=== PATIENT | female | born 1970 | race Two or more races ===

== ENCOUNTER 2022-10-22 17:59 | Emergency (ER) | payer MEDICAID ==
[2022-10-22 18:30] LABS: BASOPHILS % (AUTO) 0.4 %; EOSINOPHILS # (AUTO) 0.1 10^3/uL (0.0-0.7); EOSINOPHILS % (AUTO) 0.8 %; HCT - HEMATOCRIT 35.5 % (37.0-47.0); HGB - HEMOGLOBIN 11.3 g/dL (12.0-16.0); LYMPHOCYTES # (AUTO) 1.7 10^3/uL (1.5-3.5); LYMPHOCYTES % (AUTO) 23.7 %; MEAN CORPUSCULAR HEMOGLOBIN 26.1 pg (27.0-31.0); MEAN CORPUSCULAR HGB CONC 31.8 g/dL (32.0-36.0); MEAN PLATELET VOLUME 10.3 fL (7.9-10.8); MONOCYTES # (AUTO) 0.5 10^3/uL (0.0-1.0); MONOCYTES % (AUTO) 6.2 %; NEUTROPHILS % (AUTO) 68.8 %; PLT - PLATELET COUNT 305 10^3/uL (130-450); RED BLOOD COUNT 4.33 10^6/uL (4.20-5.40); RED CELL DISTRIBUTION WIDTH 13.5 % (12.0-15.0); WHITE BLOOD COUNT 7.3 x10^3/uL (4.8-10.8)
[2022-10-22 18:43] LABS: BILIRUBIN,TOTAL 0.4 mg/dL (0.2-1.0); CALCIUM 9.1 mg/dL (8.5-10.3); CREATININE 0.8 mg/dL (0.4-1.0); POTASSIUM 3.5 mmol/L (3.5-5.0)
--- NOTE | 2022-10-22 19:03 | ED Physician Documentation ---
History of Present Illness - Stated complaint Stated Complaint: FEMALE - Chief complaint Chief Complaint: Abd Pain - Additonal information Additional information: 52-year-old female presents to the emergency department for evaluation of v aginal bleeding. Symptoms began 3 weeks ago. She reports that she saturating up to 10 pads a day. Often waking up having to change the sheets at night. Patient does have a history of an IUD in place for 22 years. She stopped being unable to feel the strings in 2014 and went to her PCP office to have that removed. They were able to confirm that the IUD was still in place but could not remove it in its office procedure therefore they recommended additional scanning and patient was lost to follow-up. Patient reports that she typically has an episode of vaginal bleeding once a month but never this heavy or for this long. No syncope. She does have some lower abdominal cramping. She takes no prescribed medications with the exception of a migraine medication. Not anticoagulated. G3, Review of Systems Constitutional: reports: Reviewed and negative Throat: reports: Reviewed and negative Cardiac: reports: Reviewed and negative Respiratory: reports: Reviewed and negative GI: reports: Abdominal Pain : reports: Vaginal bleeding Skin: reports: Reviewed and negative Musculoskeletal: reports: Reviewed and negative PD PAST MEDICAL HISTORY - Past Medical History Past Medical History: Yes Cardiovascular: Hypertension Respiratory: None Neuro: None Endocrine/Autoimmune: None GI: None ETL TESTER: None : None HEENT: None Psych: None Musculoskeletal: None Derm: None - Past Surgical History Past Surgical History: Yes Ortho: Carpal Tunnel surgery HEENT: Cataracts - Present Medications Home Medications: Ambulatory Orders Medication Instructions Recorded Confirmed No Known Home Medications 10/22/22 10/22/22 - Allergies Allergies/Adverse Reactions: Allergies Allergy/AdvReac Type Severity Reaction Status Date / Time No Known Drug Allergies Allergy Verified 10/22/22 18:14 - Social History Does the pt smoke?: No Smoking Status: Never smoker Does the pt drink ETOH?: No Does the pt have substance abuse?: No - Immunizations Immunizations are current?: Yes PD ED PE NORMAL - General General: Alert and oriented X 3, No acute distress, Well developed/nourished - HEENT HEENT: Atraumatic, Moist mucous membranes - Neck Neck: Supple, no meningeal sign, No adenopathy - Cardiac Cardiac: RRR, No murmur - Respiratory Respiratory: No respiratory distress, Clear bilaterally - Abdomen Abdomen: Normal bowel sounds, Soft, Non tender, Non distended - Back Back: No CVA TTP, No spinal TTP - Derm Derm: Normal color - Extremities Extremities: No deformity - Neuro Neuro: Alert and oriented X 3, insurance service representative 2-12 intact Eye Opening: Spontaneous Motor: Obeys Commands Verbal: Oriented GCS Score: 15 Results - Vitals Vitals: Vital Signs - 24 hr 10/22/22 10/22/22 10/22/22 18:11 18:23 18:30 Temperature 36.7 C Heart Rate 88 85 Respiratory 16 16 Rate Blood Pressure 145/94 H 151/89 H O2 Saturation 99 100 10/22/22 10/22/22 10/22/22 19:16 20:15 20:24 Temperature Heart Rate 80 80 Respiratory 16 17 Rate Blood Pressure 142/81 H O2 Saturation 99 10/22/22 20:31 Temperature Heart Rate 84 Respiratory 17 Rate Blood Pressure O2 Saturation 97 Oxygen O2 Source Room air - Labs Labs: Laboratory Tests 10/22/22 10/22/22 18:25 18:25 WBC 7.3 RBC 4.33 Hgb 11.3 L Hct 35.5 L MCV 82.0 MCH 26.1 L MCHC 31.8 L RDW 13.5 Plt Count 305 MPV 10.3 Neut # (Auto) 5.0 Lymph # (Auto) 1.7 [place] # (Auto) 0.5 Eos # (Auto) 0.1 Baso # (Auto) 0.0 Absolute Nucleated RBC 0.00 Nucleated RBC % 0.0 Sodium 137 Potassium 3.5 Chloride 102 Carbon Dioxide 25 Anion Gap 10.0 BUN 10 Creatinine 0.8 Estimated GFR (MDRD) 75 L Glucose 103 H Calcium 9.1 Total Bilirubin 0.4 AST 18 ALT 18 Alkaline Phosphatase 75 Total Protein 8.0 Albumin 4.0 Globulin 4.0 Albumin/Globulin Ratio 1.0 Lipase 61 H - Rads (name of study) abd xr Relevant Findings:: Final report received (IUD is noted within the pelvic region) pelvic US Relevant Findings:: Other (Per technician trainee: Fundal fibroid measuring about 8 cm seen. IUD appears to be in endometrium.) PD Medical Decision Making - ED course Complexity details: reviewed results, re-evaluated patient, considered differential, d/w patient ED course: 52-year-old female presents emergency department for evaluation of 3 weeks of vaginal bleeding. Reports she has had an IUD in place for about 22 years. She attempted to have it removed in 2014 but no strings were present and she got lost to follow-up. Reports that she is saturating 10 menstrual pads a day. She has had no syncope, chest pain or shortness of air. Here in the emergency department her vital signs show no hypotension or tachycardia. I did obtain a CBC and electrolytes. The CBC shows a mild anemia with a hemoglobin of 11.3. Well above the transfusion threshold. No worrisome electrolyte abnormalities. Subsequently I did get a flatplate KUB x-ray which per my interpretation shows an IUD though higher in the pelvis than 1 would expect. Subsequently a pelvic ultrasound was completed. And per the orthopedic radiologic technologist she communicates to me that the patient has an 8 cm fibroid. The IUD appears to be within the endometrium. Given this finding I suspect that the fibroid is the cause of the heavy vaginal bleeding. Subsequently I spoke on the phone with Theresa Leong who reported to me that her office will contact the patient tomorrow to help arrange follow-up of this. It is likely she will need an endometrial biopsy for further evaluation moving forward. I discussed this plan with the patient and her [id number] at the bedside and they are both in agreement. She remains hemodynamically stable. Usual emergent return precautions for severe bleeding were discussed Departure - Departure Disposition: 01 Home, Self Care Clinical Impression: DUB (dysfunctional uterine bleeding), IUD (intrauterine device) in place Uterine fibroid Qualifiers: Uterine leiomyoma location: unspecified location Qualified Code(s): D25.9 - Leiomyoma of uterus, unspecified Record reviewed to determine appropriate education?: Yes Instructions: ED Fibroids Follow-Up: Theresa Leong DO [Provider Admit Priv/Credential] - Comments: You are seen today because for about 3 weeks you been having heavy vaginal bleeding. You also reported an IUD has been in place for at least 22 years. Your labs today look okay. You do have a mild anemia. Your hemoglobin is 11.3. Clinically there is no indication to give you a transfusion. Your IUD is still within your uterus appropriately placed in the endometrium. However the ultrasound does show that you have a large at least 8 cm fibroid. This is the cause of your vaginal bleeding. This type of uterine bleeding typically needs to be seen by a crm business analyst. It is likely you will require biopsy to ensure that this is not a sign of early cancer. I have discussed this case with our on-call crm business analyst Dr. Leong Who reported that her office will be in contact with you tomorrow to help arrange follow-up of this this week. At this time if you develop any worsening bleeding, have a racing heart rate at rest, have any fainting episodes then please return immediately to the ER for repeat evaluation
--- NOTE | 2022-10-22 19:30 | XRAY Report ---
PROCEDURE: Abdomen 1 View X-Ray INDICATIONS: does pt have an IUD TECHNIQUE: One view of the abdomen acquired. COMPARISON: None FINDINGS: Surgical changes and devices: An IUD projects in the upper pelvis/lower abdomen. Its location appears to be slightly more cephalad than expected. Bowel: Bowel gas pattern is normal. Soft tissues: No suspicious abdominal calcifications. Visualized solid organ contours appear normal in size. Bones: No suspicious bony lesions. IMPRESSION: An IUD is visualized in the lower abdomen/upper pelvis slightly higher than expected for location. Re commend further evaluation with pelvic ultrasound to confirm presence within the endometrial cavity. Reviewed by: Frankie Su MD on 10/22/2022 7:28 PM PDT Approved by: Frankie Su MD on 10/22/2022 7:28 PM PDT Station ID: [id number]
[2022-10-22 20:24] VITALS: BP 142/81
--- NOTE | 2022-10-22 20:40 | Ultrasound Report ---
PROCEDURE: Pelvic Complete INDICATIONS: VB X 3 weeks. Irregular menses. IUD X 22 years TECHNIQUE: Real-time transabdominal scanning was performed of the pelvic organs, with image documentation. COMPARISON: None. FINDINGS: Uterus: Uterus is anteverted and measures 10.2 x 5.9 x 6.9 cm. Endometrium measures up to 0.7 cm. An IUD appears to extend into the fundal endometrium. Ovaries: The right ovary measures 1.5 x 1.6 x 1.2 cm. The left ovary measures 2.4 1.1, 1.1 cm. No ma ss lesions identified. There is patent arterial and venous flow demonstrated in the ovaries. Other: No free pelvic fluid. IMPRESSION: 1. No acute sonographic abnormality in the pelvis. 2. IUD extends into the fundal endometrium. Reviewed by: Teo Funes MD on 10/22/2022 8:39 PM PDT Approved by: Teo Funes MD on 10/22/2022 8:39 PM PDT Station ID: [id number]
== END 2022-10-22 20:54 | disposition home or self-care (01) ==
LOC: ED 17:59
DX: D25.9 Leiomyoma of uterus, unspecified (principal); I10 Essential (primary) hypertension
CPT/HCPCS: 36415; 80053; 83690; 85025; 99284

== ENCOUNTER 2023-01-27 10:46 | Outpatient (CLI) | payer MEDICAID | END 2023-01-27 10:47 | disposition home or self-care (01) | LOC: LAB 10:46 | PROVIDERS: ATTEND Obstetrics & Gynecology | DX: Z01.812 Encounter for preprocedural laboratory examination (principal); N93.9 Abnormal uterine and vaginal bleeding, unspecified; Z97.5 Presence of (intrauterine) contraceptive device | CPT/HCPCS: 86850; 86900; 86901 ==

== ENCOUNTER 2023-01-28 08:50 | Day surgery (SDC) | payer MEDICAID ==
[2023-01-28] MEDS ORDERED: LACTATED RINGERS 1,000 ML IV ONE ×2 (08:54→11:17)
--- NOTE | 2023-01-28 09:03 | ANESTHESIA ---
Pre-Anesthesia VS, & Labs - Diagnosis abnormal uterine bleeding, IUD - Procedure myosure hysteroscopy, D&C Height: 5 ft 3 in Weight (kg): 93.7 kg Body Mass Index: 36.6 BMI Classification: Obese - NPO >8 hours - Is Patient ?: No - Lab Results Lab results reviewed: Yes Home Medications and Allergies Home Medications: Ambulatory Orders atenoloL [Tenormin] 25 mg PO DAILY 01/27/23 atenoloL [Tenormin] 25 mg PO DAILY 01/27/23 Allergies/Adverse Reactions: Allergies Allergy/AdvReac Type Severity Reaction Status Date / Time No Known Drug Allergies Allergy Verified 10/22/22 18:14 Anes History & Medical History - Anesthetic History Anesthesia Complications: reports: No previous complications Family history of Anesthesia Complications: Denies Family history of Malignant Hyperthermia: Denies - Medical History Cardiovascular: reports: Hypertension Pulmonary: reports: None Gastrointestinal: reports: None Urinary: reports: None Neuro: reports: None Musculoskeletal: reports: None Endocrine/Autoimmune: reports: None Blood Disorders: reports: None Skin: reports: None Smoking Status: Never smoker - Surgical History Eyes Ears Nose Throat (EENT): reports: Cataracts Orthopedic: reports: Carpal Tunnel surgery Exam General: Alert, Oriented x3, Cooperative Dental: WNL Mouth Openin Fingerbreadth Neck Mobility: Normal Mallampati classification: I Thyromental Distance: 4-6 cm Respiratory: Lungs clear, Normal breath sounds, No respiratory distress Cardiovascular: Regular rate Neurological: Normal speech Mental/Cognitive Status: Alert/Oriented X3, Normal for patient Cognitive Status: Within normal limits Plan Anesthesia Type: General, Total IV Consent for Procedure(s) Verified and Reviewed: Yes Code Status: Attempt Resuscitation ASA classification: 2-Mild systemic disease Is this case an emergency?: No
[2023-01-28 09:17] LABS: HCG UR QUAL NEGATIVE
[2023-01-28] MEDS ORDERED: ONDANSETRON 4 MG/2 ML VIAL IVP PRN (09:44)
[2023-01-28] MEDS ORDERED: fentaNYL 100 MCG/2 ML VIAL IVP PRN (09:44)
[2023-01-28] MEDS ORDERED: ePHEDrine 50 MG/ML VIAL IVP PRN (09:44)
[2023-01-28] MEDS ORDERED: MORPHINE 2 MG/ML CARPUJECT IVP PRN (09:44)
[2023-01-28] MEDS ORDERED: METOCLOPRAMIDE 10 MG/2 ML VIAL IVP PRN (09:44)
[2023-01-28] MEDS ORDERED: ATROPINE ABBOJECT 1 MG/10 ML SYRINGE IVP PRN (09:44)
[2023-01-28] MEDS ORDERED: HYDROmorphone 0.5 MG/0.5 ML SYRINGE IVP PRN (09:44)
[2023-01-28] MEDS ORDERED: NALOXONE 0.4 MG/ML VIAL IVP PRN (09:44)
[2023-01-28] MEDS ORDERED: LACTATED RINGERS 1,000 ML IV SCH (10:00)
[2023-01-28] MEDS ORDERED: LIDOCAINE 1%-EPI 1:100000 20 ML MDV ONE (10:11)
[2023-01-28] MEDS ORDERED: SILVER NITRATE APPLICATOR TOP ONE (10:12)
[2023-01-28] MEDS ORDERED: BUPIVACAINE 0.25% PF 30 ML VIAL ONE (10:12)
[2023-01-28] MEDS ORDERED: LIDOCAINE 1%-EPI 1:100000 30 ML MDV SUBQ ONE ×2 (10:55)
[2023-01-28] MEDS ORDERED: BUPIVACAINE 0.25% PF 30 ML VIAL SUBQ ONE ×2 (10:56)
[2023-01-28] MEDS ORDERED: HYDROcod/ACETAM 10 MG/325 MG TABLET PO PRN (11:10)
[2023-01-28] MEDS ORDERED: HYDROcod/ACETAM 5/325 MG TABLET PO PRN (11:10)
--- NOTE | 2023-01-28 11:19 | OPERATIVE REPORT ---
Operative Report - General Procedure Date: 01/28/23 Planned Procedure: Hysteroscopy, D&C, IUD removal, Pap smear Pre-Op Diagnosis: Abnormal uterine bleeding, retained IUD Procedure Performed: Pap smear, hysteroscopy, dilation and curettage, IUD removal Post Op Diagnosis: Same - Procedure Note Primary Surgeon: Christian Barry MD Anesthesia Provider: Lorna Gama CRNA Pathology: Endometrial curettings IV Fluids (mL): 1,000 Estimated Blood Loss (mL): 5 Urine Output (mL): 350 Complications: None - Other Other Information/Narrative: Patient was taken to the procedure room and placed in dorsal lithotomy position. Hibiclens was used to clean the operative area. [place] speculum was palced in the vagina and the cervix was visualized. The anterior lip the cervix was grasped with a single-tooth tenaculum. The cervix was stenotic, but patient received misoprostol last night. The cervix was dilated to allow introduction of the hysteroscope. The hysteroscope was then used to hydrodilate using normal saline distention media. Hysteroscope was advanced without difficulty using hydrodistention. The IUD was seen in the endometrial cavity. Hysteroscopic graspers were then placed through the hysteroscope, the strings were grasped, and the IUD and hysteroscope were removed. The hysteroscope was then replaced. The uterus appeared normal. Bilateral tubal ostia were noted. Hysteroscope was then removed. Sharp curette was then performed and the contents were placed on a Telfa. Tenaculum was then removed from the cervix noted to have a bleeding edge which was grasped with a ring forcep until bleeding stopped. The cervix was then noted to be hemostatic. All instruments removed from the vagina Fluid deficit 60 ml.
[2023-01-28] MEDS ORDERED: HYDROmorphone 0.5 MG/0.5 ML SYRINGE ONE (11:51)
[2023-01-28] MEDS ORDERED: HYDROcod/ACETAM 5/325 MG TABLET ONE (12:30)
[2023-01-28 12:55] VITALS: BP 116/73; O2SAT 99
--- NOTE | 2023-01-28 13:35 | ANESTHESIA POST OP EVALUATION ---
Anesthesia Post Eval - Post Anesthesia Eval Vitals: Last Vital Signs Temp 36.4 C L 01/28/23 12:45 Pulse 62 01/28/23 12:45 Resp 16 01/28/23 12:45 BP 116/73 01/28/23 12:45 Pulse Ox 99 01/28/23 12:45 O2 Flow Rate 0 01/28/23 09:07 CV Function Including HR & BP: Stable Pain Control: Satisfactory Nausea & Vomiting: Negative Mental Status: Baseline Respiratory Status: Airway Patent Hydration Status: Satisfactory Anesthesia Complications: None
== END 2023-01-28 08:51 | disposition home or self-care (01) ==
LOC: SDS 08:50
PROVIDERS: ATTEND Obstetrics & Gynecology
PROC: 0UDB8ZZ Extraction of Endometrium, Via Natural or Artificial Opening Endoscopic (ICD-10-PCS; principal; 2023-01-28 10:15)
DX: N92.4 Excessive bleeding in the premenopausal period (principal); N85.8 Other specified noninflammatory disorders of uterus; Z30.432 Encounter for removal of intrauterine contraceptive device; I10 Essential (primary) hypertension; E66.9 Obesity, unspecified; Z68.36 Body mass index [BMI] 36.0-36.9, adult; Z32.02 Encounter for pregnancy test, result negative
CPT/HCPCS: 58558; 58579; 81025; A9270; J1170; J7120